=== PATIENT | female | born 1980 | race Caucasian/White ===

== ENCOUNTER → 2022-07-25 10:56 | Outpatient (BNVA) | payer MEDICARE, MEDICAID, SELFPAY | PROVIDERS: PCP Student in an Organized Health Care Education/Training Program; Visit Provider Anesthesiology | DX: M47.816 Spondylosis without myelopathy or radiculopathy, lumbar region (principal); N62 Hypertrophy of breast; E66.01 Morbid (severe) obesity due to excess calories; G89.4 Chronic pain syndrome; Z68.42 Body mass index [BMI] 45.0-49.9, adult | CPT/HCPCS: 99202 ==

== ENCOUNTER 2022-08-21 06:06 | Outpatient (REF) | payer MEDICARE, MEDICAID, SELFPAY ==
--- NOTE | ~2022-08-21 | FL_ITS ---
EXAMINATION: XR FLUOROSCOPY WITH IMAGES CLINICAL INFORMATION: Back pain. COMPARISON: None. TECHNIQUE: Fluoroscopy Supervised By: OFE Olvera. Fluoroscopy Time: 0.8. Cumulative Dose: 21.0 mGy. DAP: 5.74 Gy-cm2. Images: 6. FINDINGS: There are 6 digital images obtained revealing needle positioned adjacent to bilateral L5, L4 and L3 pedicles with contrast opacifying the adjacent soft tissues. Visualized bones are grossly unremarkable. FL/FL guidance in treatment room IMPRESSION: Fluoroscopy guidance was provided to the referrer for pain management.
== END 2022-08-21 06:07 | disposition home or self-care (01) ==
LOC: CF 06:06
PROVIDERS: Visit Provider Anesthesiology
DX: M47.816 Spondylosis without myelopathy or radiculopathy, lumbar region (principal); G89.4 Chronic pain syndrome; E66.01 Morbid (severe) obesity due to excess calories
CPT/HCPCS: 64493; 64494

== ENCOUNTER → 2022-08-27 15:08 | Outpatient (BNVA) | payer MEDICARE, MEDICAID, SELFPAY | PROVIDERS: PCP Student in an Organized Health Care Education/Training Program; Visit Provider Anesthesiology | DX: G89.4 Chronic pain syndrome (principal); M47.816 Spondylosis without myelopathy or radiculopathy, lumbar region; M51.36 Other intervertebral disc degeneration, lumbar region; E66.01 Morbid (severe) obesity due to excess calories | CPT/HCPCS: Q3014 ==

== ENCOUNTER 2022-09-18 10:31 | Outpatient (REF) | payer MEDICARE, MEDICAID, SELFPAY ==
--- NOTE | ~2022-09-18 | MR_ITS ---
EXAMINATION: MR LUMBAR SPINE WITHOUT CONTRAST CLINICAL INFORMATION: Lower back pain COMPARISON: None TECHNIQUE: MRI of the lumbar spine was obtained using routine sequences without contrast. FINDINGS: Motion degraded examination Normal anatomic alignment. No suspicious marrow signal or focal osseous lesion. The vertebral body heights are maintained. Disc desiccation with relative preservation of disc space height from L3-L4 to L5-S1.. The conus medullaris terminates at the level of L1-L2. The distal spinal cord is normal in appearance. The cauda equina nerve roots appear normal. Thin fatty infiltration of the filum terminale. No significant abnormalities of the paraspinal musculature.. Subcutaneous edema in the midline posterior soft tissues Limited evaluation of the intra-abdominal structures without significant abnormalities. The abdominal aorta is of normal contour and caliber. SPINAL LEVELS: T12-L1: No significant spinal canal or neural foraminal narrowing L1-L2: Small left central disc protrusion. No significant spinal canal or neural foraminal narrowing L2-L3: No significant spinal canal or neuroforaminal narrowing. L3-L4: Minimal disc bulge, mild to moderate facet arthropathy. No significant central spinal canal stenosis. Mild bilateral neural foraminal narrowing. L4-L5: Minimal central disc protrusion with annular fissure and. Mild facet arthropathy. Mild bilateral neural foraminal narrowing. L5-S1: Minimal central disc protrusion with annular fissure and. Mild facet arthropathy. Mild bilateral neural foraminal narrowing. MR/MR lumbar spine wo con IMPRESSION: Motion degraded examination 1. Mild degenerative changes of the lumbar spine as described above without significant spinal canal stenosis or high-grade neural foraminal narrowing. 2. Mild to moderate lower lumbar facet arthropathy. 3. Minimal central disc protrusions with annular fissures at L4-L5 and L5-S1.
== END 2022-09-18 10:32 | disposition home or self-care (01) ==
LOC: HO.MRI 10:31
PROVIDERS: PCP Student in an Organized Health Care Education/Training Program; Visit Provider Anesthesiology
DX: M47.816 Spondylosis without myelopathy or radiculopathy, lumbar region (principal); M51.36 Other intervertebral disc degeneration, lumbar region; G89.4 Chronic pain syndrome; E66.01 Morbid (severe) obesity due to excess calories
CPT/HCPCS: 72148

== ENCOUNTER 2023-03-05 11:58 | Outpatient (REF) | payer MEDICARE, MEDICAID, SELFPAY ==
[2023-03-05 15:00] LABS: Alanine Aminotransferase 12 U/L (0-31); Albumin Level 3.9 g/dL (3.5-5.0); Alkaline Phosphatase 60 U/L (39-117); Anion Gap 10 (12-20); Aspartate Amino Transferase 17 U/L (5-31); Bilirubin Direct 0.2 mg/dL (0.0-0.5); Bilirubin Total 0.3 mg/dL (0.0-1.0); Blood Urea Nitrogen 6 mg/dL (9-16); Calcium 9.1 mg/dL (8.4-10.2); Carbon Dioxide 27 mmol/L (22-29); Chloride 105 mmol/L (96-108); Cholesterol 149 mg/dL (<200); Estimated Glomerular Filt Rate > 60; Glucose Fasting 81 mg/dL (60-99); HDL Cholesterol 44 mg/dL (>40); LDL Cholesterol Calculated 91 mg/dL (<100); Potassium 3.6 mmol/L (3.3-5.1); Sodium 138 mmol/L (135-145); Total Protein 7.7 g/dL (6.5-8.0); Triglycerides 73 mg/dL (<150)
[2023-03-05 15:20] LABS: Vitamin D 25-OH Total 16.7 ng/mL (>30)
== END 2023-03-05 11:59 | disposition home or self-care (01) ==
LOC: HO.CHCLDS 11:58
PROVIDERS: Visit Provider Student in an Organized Health Care Education/Training Program
DX: Z13.89 Encounter for screening for other disorder (principal)
CPT/HCPCS: 36415; 80048; 80061; 80076; 82306

== ENCOUNTER 2024-04-17 11:41 | Outpatient (REF) | payer MEDICARE, MEDICAID, SELFPAY ==
[2024-04-17 12:08] LABS: MANUAL DIFF FLAG NO
[2024-04-17 12:20] LABS: Basophils Percent Auto 0.6 % (0-2); Eosinophils Absolute Auto 0.1 X10*3/uL (0.0-0.4); Eosinophils Percent Auto 2.9 % (0-4); Hematocrit 39.3 % (37.0-47.0); Hemoglobin 12.6 g/dl (12.0-16.0); Imm Gran Abs Auto 0.01 X10*3/uL (0.00-0.03); Imm Gran Pct Auto 0.2 % (0.0-0.4); Lymphocytes Absolute Auto 1.1 X10*3/uL (1.2-4.9); Lymphocytes Percent Auto 22.7 % (20-40); Mean Corpuscular HGB Conc 32.1 g/dl (31.0-35.0); Mean Platelet Volume 11.8 fL (9.4-12.3); Monocytes Absolute Auto 0.3 X10*3/uL (0.1-1.2); Monocytes Percent Auto 5.5 % (2-11); Neutrophils Absolute Auto 3.2 x10*3/uL (2.0-8.3); Neutrophils Percent Auto 68.1 % (45-73); Platelet Count 232 X10*3/uL (160-400); Red Blood Count 5.04 X10*6/uL (4.20-5.50); White Blood Count 4.8 X10*3/uL (4.8-10.8)
[2024-04-17 12:57] LABS: Alanine Aminotransferase 16 U/L (0-31); Albumin Level 3.9 g/dL (3.5-5.0); Alkaline Phosphatase 56 U/L (39-117); Anion Gap 10 (12-20); Aspartate Amino Transferase 27 U/L (5-31); Bilirubin Direct 0.2 mg/dL (0.0-0.5); Bilirubin Total 0.4 mg/dL (0.0-1.0); Blood Urea Nitrogen 8 mg/dL (9-16); Calcium 9.2 mg/dL (8.4-10.2); Carbon Dioxide 29 mmol/L (22-29); Chloride 103 mmol/L (96-108); Cholesterol 150 mg/dL (<200); Estimated Glomerular Filt Rate > 60; Glucose Random 85 mg/dL (60-115); HDL Cholesterol 48 mg/dL (>40); LDL Cholesterol Calculated 88 mg/dL (<100); Potassium 3.1 mmol/L (3.3-5.1); Sodium 139 mmol/L (135-145); Total Protein 7.5 g/dL (6.5-8.0); Triglycerides 72 mg/dL (<150)
[2024-04-18 08:16] LABS: HIV AB/AG Nonreactive (Nonreactive); HIV Num 1 0.05 S/CO (0.00-0.99); ~HepC Num1 0.15 S/CO (0.00-0.79); ~Hepatitis C Antibody Nonreactive (Nonreactive)
== END 2024-04-17 11:42 | disposition home or self-care (01) ==
LOC: HO.LAB 11:41
PROVIDERS: PCP Student in an Organized Health Care Education/Training Program; Visit Provider Student in an Organized Health Care Education/Training Program
DX: Z00.00 Encounter for general adult medical examination without abnormal findings (principal); I10 Essential (primary) hypertension; D50.9 Iron deficiency anemia, unspecified; E55.9 Vitamin D deficiency, unspecified
CPT/HCPCS: 36415; 80048; 80061; 80076; 82306; 85025; 86803; 87389

== ENCOUNTER 2024-04-30 11:42 | Outpatient (REF) | payer MEDICARE, MEDICAID, SELFPAY ==
[2024-04-30 15:19] LABS: Anion Gap 14 (12-20); Blood Urea Nitrogen 16 mg/dL (9-16); Calcium 9.7 mg/dL (8.4-10.2); Carbon Dioxide 22 mmol/L (22-29); Chloride 106 mmol/L (96-108); Estimated Glomerular Filt Rate > 60; Glucose Random 78 mg/dL (60-115); Potassium 3.7 mmol/L (3.3-5.1); Sodium 138 mmol/L (135-145)
== END 2024-04-30 11:43 | disposition home or self-care (01) ==
LOC: HO.CHCLDS 11:42
PROVIDERS: Visit Provider Student in an Organized Health Care Education/Training Program
DX: I10 Essential (primary) hypertension (principal)
CPT/HCPCS: 36415; 80048

== ENCOUNTER 2025-04-20 12:01 | Outpatient (REF) | payer MEDICARE, MEDICAID, SELFPAY ==
--- OUTSIDE RECORDS SUMMARY | 2025-04-16 13:00 | XMS_ITS | Encounter Summary ---
Author Organization [employer] [facility] Address [address] 7[address] [place] [address] Care Team Providers Care Hypo Splasher Name Role Phone Scarlet Clay CNP Primary Care Provider [phone] Reason for Referral * Imaging (Routine) - Authorized Specialty Diagnoses / Procedures Referred By Kellee rucker Referred To Contact Radiology Diagnoses Encounter for screening mammogram for breast cancer Procedures BI Mammogram Screening Tomosynthesis Bilateral Scarlet Clay CNP [address] [place] [address] Phone: tel: fax: [facility] Referral ID Status Reason Start Date Expiration Date V isits Requested Visits Authorized [id number] Authorized 04/16/2025 04/16/2026 1 1 Encounter Details Date Type Department Care Team ([facility] st Contact Info) Description 04/16/2025 1:00 PM EDT Office Visit [facility] [address] [place] [address] Scarlet Clay CNP [address] [place] [address] Encounter for physical examination (Primary Dx); Encounter for screening mammogram for breast cancer; Other chronic back pain; Chronic pain syndrome Social History Tobacco Use Types Packs/Day Years Used Date Smoking Tobacco: Never Smokeless Tobacco: Never Alcohol Use Standard Drinks/Week Comments Never 0 (1 standard drink = 0.6 oz pur e alcohol) Alcohol Answer Date Recorded How often do you have a drink containing alcohol ? 1 04/16/2025 How many drinks containing a lcohol do you have on a typical day when you are drinking? 0 04/16/2025 How often do you have six or more drinks on one occasion? 0 04/16/2025 Depression Answer Date Recorded Patient Health Questionnaire-9 Score 7 04/16/2025 Patient Health Questionnaire-9 Score 7 04/16/2025 Last PHQ-9: Questionnaire Data Not on file 1 Housing Stability Answer Date Recorded What is your housing situation today? I have rosa smiley 03/31/[address] you li ve. Do you have problems with any of the following? None of the above 03/31/2024 Food Insecurity Answer Date Recorded Within the past 12 months, y ou worried that your food would run out before you got money to buy more: Sometimes True 2023 Within the past 12 months,th e food you bought just didn't last and you didn't have enough money to get more: Sometimes True 04/09/2024 Transportation Answer Date Recorded In the past 12 months, has l ack of transportation kept you from medical appts, meetings, work or from getting things needed for daily living? No 04/09/2025 Utilities Answer Date Recorded In the past 12 months, has t he electric, gas, oil or water company threatened to shut off services in your home? Yes 04/09/2025 Depression Answer Date Recorded Patient Health Questionnaire-2 Score 2 04/16/2025 Internet Access Answer Date Recorded Internet Access Q1 Yes 03/31/2024 Internet Access Q2 Not on file 03/31/2024 Comments No Sex and Gender Information Value Date Recorded Sex Assigned at Female 04/23/2022 10:16 AM EDT Legal Sex Female 10:16 AM EDT Gender Identity Female 04/23/2022 10:16 AM EDT Sexual Orientation Straight 04/23/2022 10 :16 AM EDT documented as of this encounter Last Filed Vital Signs Vital Sign Reading Time Taken Comments Blood Pressure 172/100 04/16/2025 12:50 PM EDT Pulse 80 04/16/2025 12:50 PM EDT Temperature 36.2 C (97.1 F) 04/16/2025 12:50 PM EDT Respiratory Rate 18 04/16/2025 12:50 PM EDT Oxygen Saturation 98% 04/16/2025 12:50 PM EDT Inhaled Oxygen Concentration - - Weight 111 kg (245 lb) 04/16/2025 12:50 PM EDT Height 153.7 cm (5' 0.5 ) 04/16/2025 12:50 PM ED T Body Mass Index 47.06 04/16/2025 12:50 PM EDT documented in this encounter Functional Status * Over the past 2 weeks, how often have you been bothered by any of the following problems? Question Answer Date of Assessment Author Patient Health Questionnaire -2 Score 2 04/16/2025 12:54 PM EDT Sa ariane Mcelroy MA * Little interest or pleasure in doing things Answer Date of Assessment Author Several days 04/16/2025 12:54 PM EDT Radha Holguin MA * Feeling down, depressed, or hopeless Answer Date of Assessment Author Several days 04/16/2025 12:54 PM EDT Radha Holguin MA * Trouble falling or staying asleep, or sleeping too much Answer Date of Assessment Author Several days 04/16/2025 12:54 PM EDT Radha Holguin MA * Feeling tired or having little energy Answer Date of Assessment Author Several days 04/16/2025 12:54 PM EDT Radha Holguin MA * Poor appetite or overeating Answer Date of Assessment Author Not at all 04/16/2025 12:54 PM EDT Radha Holguin MA * Feeling bad about yourself - or that you are a failure or have let yourself or your family down Answer Date of Assessment Author Not at all 04/16/2025 12:54 PM EDT Radha Holguin MA * Trouble concentrating on things, such as reading the newspaper or watching television Answer Date of Assessment Author Several days 04/16/2025 12:54 PM EDT Radha Holguin MA * Moving or speaking so slowly that other people could have noticed? Or the opposite - being so fidgety or restless that you have been moving around a lot more than usual. Answer Date of Assessment Author More than half the days 04/16/2025 12:54 PM EDT Radha Mcelroy MA * Thoughts that you would be better off or hurting yourself in some way Answer Date of Assessment Author Not at all 04/16/2025 12:54 PM EDT Radha Holguin MA * Patient Health Questionnaire-9 Score Answer Date of Assessment Author 7 04/16/2025 12:54 PM EDT Radha Holguin MA * How difficult have these problems made it for you to do your work, take care of things at home, or get along with other people? Answer Date of Assessment Author Somewhat difficult 04/16/2025 12:54 PM EDT Radha Adamson MA * Over the last 2 weeks, how often have you been bothered by any of the following problems? Question Answer Date of Assessment Author Feeling nervous, anxious, or on edge 1 04/16/2025 12:54 PM EDT Sa ariane Mcelroy MA Not being able to stop or control worrying 1 04/16/2025 12:54 PM EDT Sa ariane Mcelroy MA Worrying too much about different things 1 04/16/2025 12:54 PM EDT Sa ariane Mcelroy MA Trouble relaxing 3 04/16/2025 12:54 PM EDT Radha Mcelroy MA Being so restless that it is hard to sit still 3 04/16/2025 12:54 PM EDT Sa ariane Mcelroy MA Becoming easily annoyed or irritable 2 04/16/2025 12:54 PM EDT Sa ariane Mcelroy MA Feeling afraid as if somethi ng awful might happen 1 04/16/2025 12:54 PM EDT Sa ariane Mcelroy MA CHELSY-7 Total Score 12 04/16/2025 12:54 PM EDT Radha Mcelroy MA documented as of this encounter Plan of Treatment Scheduled Orders Name Type Priority Associated Diagnoses Orde r Schedule BI Mammogram Screening Tomosynthesis Bilateral Imaging Routine Encounter for screening mammogram for breast cancer Expected: 04/16/2025, Expires: 06/16/2026 XR Lumbar Spine 2-3 Views Imaging Routine Other chronic back pain Expected: 04/16/2025, Expires: 04/16/2026 XR Thoracic Spine 3 Views Imaging Routine Other chronic back pain Expected: 04/16/2025, Expires: 04/16/2026 ELIA Screen,IFA, with Reflex to Titer and Pattern Lab Routine Chronic pain syndrome Expected: 04/16/2025 (Approximate), Expires: 04/16/2026 Sed Rate by Modified [facility] Lab Routine Chronic pain syndrome Expected: 04/16/2025, Expires: 04/16/2026 documented as of this encounter Procedures Procedure Name Priority Date/Time Associated Diagnosis Comments TSH W/REFLEX TO FT4 Routine 04/20/2025 1 2:03 PM EDT Encounter for physical examination CBC WITH AUTO DIFFERENTIAL Routine 04/20/2025 12:03 PM EDT Encounter for physical examination RHEUMATOID FACTOR Routine 04/20/2025 12: 03 PM EDT Chronic pain syndrome C-REACTIVE PROTEIN Routine 04/20/2025 12 :03 PM EDT Chronic pain syndrome HEPATIC FUNCTION PANEL Routine 04/20/2025 12:03 PM EDT Encounter for physical examination LIPID PANEL, STANDARD Routine 04/20/2025 12:03 PM EDT Encounter for physical examination BASIC METABOLIC PANEL Routine 04/20/2025 12:03 PM EDT Encounter for physical examination documented in this encounter Results * TSH W/Reflex to FT4 (04/20/2025 12:03 PM EDT) TSH reflex Free T4 0.55 0.32 - 4.0 uIU/mL [facility] Blood Venous blood specimen / Unknown 04/20/2025 12:03 PM EDT 04/20/2025 2:09 PM EDT Scarlet Clay [facility] BLOOD ORDERABLES Valentine l Result [facility] [address] [place] [phone] * (ABNORMAL) Rheumatoid Factor (04/20/2025 12:03 PM EDT) Pathologist [facility] Rheumatoid Factor 15.8(H) <15.0 IU/mL [facility] Blood Venous blood specimen / Unknown 04/20/2025 12:03 PM EDT 04/20/2025 2:09 PM EDT [facility] BLOOD ORDERABLES Valentine l Result Performing Organization Address [facility] Co de Phone Number [facility] [address] [place] [phone] * (ABNORMAL) C-reactive Protein (04/20/2025 12:03 PM EDT) [facility] C Reactive Protein 2.39(H) < or = 0.50 mg/dL [facility] Blood Venous blood specimen / Unknown 04/20/2025 12:03 PM EDT 04/20/2025 2:09 PM EDT [facility] LAB BLOOD ORDERABLES Valentine l Result Performing Organization Address [facility] de Phone Number [facility] [address] [place] [phone] * (ABNORMAL) CBC auto differential (04/20/2025 12:03 PM EDT) Pathologist [facility] White Blood Count 5.0 4.8 - 10.8 X10*3/uL [facility] Red Blood Count 4.93 4.20 - 5.50 X10*6/uL [facility] Hemoglobin 12.2 12.0 - 16.0 g/dl [facility] Hematocrit 39.4 37.0 - 47.0 % [facility] Mean Corpuscular Volume 79.9(L) 80.0 - 98.0 fL [facility] Mean Corpuscular Hemoglobin 24.7(L) 27.0 - 33.0 pg [facility] Mean Corpuscular HGB Conc 31.0 31.0 - 35.0 g/dl [facility] Red Cell Distribution Width 15.0 11.0 - 16.0 % [facility] Platelet Count 211 160 - 400 X10*3/uL [facility] Mean Platelet Volume 12.7(H) 9.4 - 12.3 fL [facility] Neutrophils Percent Auto 66.3 45 - 73 % [facility] Imm Gran Pct Auto 0.2 0.0 - 0.4 % [facility] Lymphocytes Percent Auto 23.7 20 - 40 % [facility] Monocytes Percent Auto 6.6 2 - 11 % [facility] Eosinophils Percent Auto 2.4 0 - 4 % [facility] Basophils Percent Auto 0.8 0 - 2 % [facility] NRBC Pct Auto 0.0 0.0 - 0.2 /100WBC [facility] Neutrophils Absolute Auto 3.3 2.0 - 8.3 x10*3/uL [facility] Imm Gran Abs Auto 0.01 0.00 - 0.03 X10*3/uL [facility] Lymphocytes Absolute Auto 1.2 1.2 - 4.9 X10*3/uL [facility] Monocytes Absolute Auto 0.3 0.1 - 1.2 X10*3/uL [facility] Eosinophils Absolute Auto 0.1 0.0 - 0.4 X10*3/uL [facility] Basophils Absolute Auto 0.0 0.0 - 0.2 X10*3/uL [facility] NRBC Abs Auto 0.000 0.0 - 0.012 X10*3/uL [facility] Blood Venous blood specimen / Unknown 04/20/2025 12:03 PM EDT 04/20/2025 2:21 PM EDT Scarlet Clay [facility] BLOOD ORDERABLES Valentine l Result [facility] [address] [place] [phone] * Hepatic Function Panel (04/20/2025 12:03 PM EDT) Bilirubin, Total 0.4 0.0 - 1.0 mg/dL [facility] Bilirubin, Direct 0.1 0.0 - 0.5 mg/dL [facility] Aspartate Amino Transferase 25 5 - 31 U/L [facility] Alanine Aminotransferase 15 0 - 31 U/L [facility] Total Protein 7.6 6.5 - 8.0 g/dL [facility] Albumin Level 4.1 3.5 - 5.0 g/dL [facility] Alkaline Phosphatase 56 39 - 117 U/L [facility] Blood Venous blood specimen / Unknown 04/20/2025 12:03 PM EDT 04/20/2025 2:09 PM EDT Neftalixinahid Clay [facility] BLOOD ORDERABLES Valentine l Result [facility] [address] [place] [phone] * Lipid Panel, Standard (04/20/2025 12:03 PM EDT) Triglycerides 67 <150 mg/dL [facility] Comment:Desirable Triglyceri de: less than 150 mg/dLBorderline High Triglyceride 150-199 mg/dLHigh Triglyceride: 200-499 mg/dLVery High Triglyceride: greater than or equal to 5OO mg/dL Cholesterol 149 <200 mg/dL [facility] Comment:Desirable Cholestero l: less than 200 mg/dLBorderline High Cholesterol: 200-239 mg/dLHigh Cholesterol: greater than 239 mg/dL LDL Cholesterol Calculated 89 <100 mg/dL [facility] Comment:Desirable LDL: less than 100 mg/dLNear Optimal/Above Optimal LDL: 110- 129 mg/dLBorderline High LDL: 130-159 mg/dLHigh LDL: 160-189 mg/dLVery High LDL: greater than or equal to 190 mg/dL HDL Cholesterol 47 >40 mg/dL [facility] Comment:Desirable HDL: great er than 40 mg/dL Note: This HDL assay may give artificially low results in patients with liver disease. Blood Venous blood specimen / Unknown 04/20/2025 12:03 PM EDT 04/20/2025 2:09 PM EDT [facility] BLOOD ORDERABLES Valentine l Result Performing Organization Address [facility] Co de Phone Number [facility] [address] [place] [phone] * (ABNORMAL) Basic Metabolic Panel (04/20/2025 12:03 PM EDT) Sodium 140 135 - 145 mmol/L [facility] Potassium 3.5 3.3 - 5.1 mmol/L [facility] Chloride 106 96 - 108 mmol/L [facility] Carbon Dioxide 26 22 - 29 mmol/L [facility] Anion Gap 12 12 - 20 [facility] Urea Nitrogen (BUN) 8(L) 9 - 16 mg/dL [facility] Creatinine, Serum 0.65 0.5 - 1.4 mg/dL [facility] Estimated Glomerular Filt Rate >60 [facility] Comment:Chronic Kidney Disea se: Estimated GFR < 60 mL/min/[id number] Kidney Disease: Estimated GFR < 15 mL/min/1.73m2 Glucose 73 60 - 115 mg/dL [facility] Calcium 8.8 8.4 - 10.2 mg/dL [facility] Blood Venous blood specimen / Unknown 04/20/2025 12:03 PM EDT 04/20/2025 2:09 PM EDT [facility] BLOOD ORDERABLES Valentine l Result Performing Organization Address [facility] Co de Phone Number [facility] [address] [place] [phone] documented in this encounter Visit Diagnoses Diagnosis Encounter for physical examination- Primary Encounter for screening mammogram for breast cancer Other chronic back pain Chronic pain syndrome documented in this encounter Additional Health Concerns Assessment Noted Time PHQ-9 Depression Total Score: 7 04/16/20 12:54 PM EDT documented as of this encounter Care Teams Hypo Splasher Relationship Specialty Start Date End Date Scarlet Clay CNP [address] [place] [place] [address] PCP - General Family Medicine 04/12/25 documented as of this encounter
[2025-04-20 14:30] LABS: MANUAL DIFF FLAG NO
[2025-04-20 14:37] LABS: Hematocrit 39.4 % (37.0-47.0); Hemoglobin 12.2 g/dl (12.0-16.0); Imm Gran Abs Auto 0.01 X10*3/uL (0.00-0.03); Imm Gran Pct Auto 0.2 % (0.0-0.4); Lymphocytes Absolute Auto 1.2 X10*3/uL (1.2-4.9); Mean Corpuscular HGB Conc 31.0 g/dl (31.0-35.0); Mean Corpuscular Hemoglobin 24.7 pg (27.0-33.0); Mean Corpuscular Volume 79.9 fL (80.0-98.0); NRBC Abs Auto 0.000 X10*3/uL (0.0-0.012); NRBC Pct Auto 0.0 /100WBC (0.0-0.2); Platelet Count 211 X10*3/uL (160-400); Red Blood Count 4.93 X10*6/uL (4.20-5.50); White Blood Count 5.0 X10*3/uL (4.8-10.8)
[2025-04-20 14:38] LABS: Alanine Aminotransferase 15 U/L (0-31); Albumin Level 4.1 g/dL (3.5-5.0); Alkaline Phosphatase 56 U/L (39-117); Anion Gap 12 (12-20); Aspartate Amino Transferase 25 U/L (5-31); Blood Urea Nitrogen 8 mg/dL (9-16); Calcium 8.8 mg/dL (8.4-10.2); Carbon Dioxide 26 mmol/L (22-29); Chloride 106 mmol/L (96-108); Cholesterol 149 mg/dL (<200); Estimated Glomerular Filt Rate > 60; HDL Cholesterol 47 mg/dL (>40); Potassium 3.5 mmol/L (3.3-5.1); Sodium 140 mmol/L (135-145); Total Protein 7.6 g/dL (6.5-8.0); Triglycerides 67 mg/dL (<150)
--- OUTSIDE RECORDS SUMMARY | 2025-04-20 15:22 | XMS_ITS | Encounter Summary ---
Author Organization [employer] Address [address] 7[address] [place] [address] Care Team Providers Care Tin Can Laborer Name Role Phone Lesly Zaman MD Primary Care Provider [phone] Scarlet Clay CNP Primary Care Provider [phone] Reason for Visit * Reason Onset Date Comments Referral 07/30/2024 Encounter Details Date Type Department Care Team ([facility] st Contact Info) Description 07/30/2024 Telephone [facility] [address] [place] [address] Lesly Zaman MD [address] [place] [address] Referral Social History Tobacco Use Types Packs/Day Years Used Date Smoking Tobacco: Never Smokeless Tobacco: Never Alcohol Use Standard Drinks/Week Comments Never 0 (1 standard drink = 0.6 oz pur e alcohol) Depression Answer Date Recorded Patient Health Questionnaire-9 Score 6 04/09/2024 Patient Health Questionnaire-9 Score 6 04/09/2024 Last PHQ-9: Questionnaire Data Not on file [...] from getting things needed for daily living? I am not sure 04/09/2024 Utilities Answer Date Recorded In the past 12 months, has t he electric, gas, oil or water company threatened to shut off services in your home? I am not sure 04/09/2024 Depression Answer Date Recorded Patient Health Questionnaire-2 Score 2 04/09/2024 Internet Access Answer Date Recorded Internet Access Q1 Yes 03/31/2024 Internet Access Q2 Not on file 03/31/2024 Comments Unknown Sex and Gender Information Value Date Recorded Sex Assigned at Female 04/23/2022 10:16 AM EDT Legal Sex Female 10:16 AM EDT Gender Identity Female 04/23/2022 10:16 AM EDT Sexual Orientation Straight 04/23/2022 10 :16 AM EDT documented as of this encounter Miscellaneous Notes * Telephone Encounter - Alexx Bobyes - 07/30/2024 10:32 AM EST Tc from pt requesting a referral to [facility]. Pt states theyhave an appt schedule for September and that they need a referral. documented in this encounter Plan of Treatment Not on file documented as of this encounter Visit Diagnoses Not on filedocumented in this encounter Additional Health Concerns Assessment Noted Time PHQ-9 Depression Total Score: 6 04/09/20 24 2:33 PM EDT documented as of this encounter Care Teams Tin Can Laborer Relationship Specialty Start Date End Date Lesly Zaman MD [address] [place] [address] PCP - General Family Medicine 12/14/19 04/11/25 Scarlet Clay CNP [address] [place] [address] PCP - General Family Medicine 04/12/25 documented as of this encounter
--- OUTSIDE RECORDS SUMMARY | 2025-04-20 15:22 | XMS_ITS | Encounter Summary ---
Author Organization [employer] Address [address] [facility] 7[address] [place] [address] Care Team Providers Care Head Machinist Name Role Phone Lesly Zaman MD Primary Care Provider [phone] Scarlet Clay CNP Primary Care Provider [phone] Reason for Visit * Reason Onset Date Comments Med Refill 06/11/2023 Encounter Details Date Type Department Care Team ([facility] [place] st Contact Info) Description 06/11/2023 Telephone [facility] [address] [place] [address] Lesly Zaman MD [address] [place] [address] Med Refill Social History Tobacco Use Types Packs/Day Years Used Date Smoking Tobacco: Never Smokeless Tobacco: Never Alcohol Use Standard Drinks/Week Comments Never 0 (1 standard drink = 0.6 oz pur e alcohol) Depression Answer Date Recorded Patient Health Questionnaire-9 Score 2 11/16/2022 Housing Stability Answer Date Recorded What is your housing situation today? I have rosa smiley 04/29/[address] you li ve. Do you have problems with any of the following? I am not sure 04/29/2023 Food Insecurity Answer Date Recorded Within the past 12 months, y ou worried that your food would run out before you got money to buy more: Often true 04/29/2023 Within the past 12 months,th e food you bought just didn't last and you didn't have enough money to get more: Often true 11/2022 Transportation Answer Date Recorded In the past 12 months, has l ack of transportation kept you from medical appts, meetings, work or from getting things needed for daily living? Yes, it has kept me from medical appointments or getting medications.;Yes, it has kept me from non-medical meetings, work, or getting things that I need 04/02/2023 Utilities Answer Date Recorded In the past 12 months, has t he electric, gas, oil or water company threatened to shut off services in your home? Yes 04/02/2023 Depression Answer Date Recorded Patient Health Questionnaire-2 Score 2 11/16/2022 Comments Unknown Sex and Gender Information Value Date Recorded Sex Assigned at Female 04/23/2022 10:16 AM EDT Legal Sex Female 10:16 AM EDT Gender Identity Female 04/23/2022 10:16 AM EDT Sexual Orientation Straight 04/23/2022 10 :16 AM EDT documented as of this encounter Miscellaneous Notes * Telephone Encounter - Dara Bell - 06/11/2023 11:04 AM EST Tc from pt requesting med refill on; traMADol (Ultram) 50 MG tablet documented in this encounter Plan of Treatment Not on file documented as of this encounter Visit Diagnoses Not on filedocumented in this encounter Additional Health Concerns Assessment Noted Time PHQ-9 Depression Total Score: 2 11/17/19 23 11:19 AM EDT documented as of this encounter Care Teams Head Machinist Relationship Specialty Start Date End Date Lesly Zaman MD [address] [place] [address] PCP - General Family Medicine 12/14/19 04/11/25 Scarlet Clay CNP [address] [place] [address] PCP - General Family Medicine 04/12/25 documented as of this encounter
--- OUTSIDE RECORDS SUMMARY | 2025-04-20 15:22 | XMS_ITS | Encounter Summary ---
Author Organization [employer] Address [address] [facility] 7[address] [place] [address] Care Team Providers Care Warhead Maintenance Specialist Name Role Phone Lesly Zaman MD Primary Care Provider [phone] Scarlet Clay CNP Primary Care Provider [phone] Reason for Referral * Imaging (Routine) - Closed Specialty Diagnoses / Procedures Referred By Kellee rucker Referred To Contact Radiology Diagnoses Encounter for screening mammogram for breast cancer Procedures BI Mammogram Screening Tomosynthesis Bilateral Lesly Zaman MD [address] [place] [address] Phone: tel: fax: [facility] Referral ID Status Reason Start Date Expiration Date Visits Re quested Visits Authorized [id number] Closed 2024 2025 1 1 Encounter Details Date Type Department Care Team (Late st Contact Info) Description 2024 Orders Only [facility] MED & PEDS [address] [place] [address] Lesly Zaman MD [address] [place] [address] Encounter for screening mammogram for breast cancer (Primary Dx) Social History Tobacco Use Types Packs/Day Years [...] AM EDT documented as of this encounter Plan of Treatment Scheduled Orders Name Type Priority Associated Diagnoses Orde r Schedule BI Mammogram Screening Tomosynthesis Bilateral Imaging Routine Encounter for screening mammogram for breast cancer Expected: 2024, Expires: 07/06/2025 documented as of this encounter Visit Diagnoses Diagnosis Encounter for screening mammogram for breast cancer- Primary documented in this encounter Additional Health Concerns Assessment Noted Time PHQ-9 Depression Total Score: 6 04/09/20 24 2:33 PM EDT documented as of this encounter Care Teams Warhead Maintenance Specialist Relationship Specialty Start Date End Date Lesly Zaman MD [address] [place] [id number] PCP - General Family Medicine 12/14/19 04/11/25 Scarlet Clay CNP [address] [place] [id number] PCP - General Family Medicine 04/12/25 documented as of this encounter
--- OUTSIDE RECORDS SUMMARY | 2025-04-20 15:22 | XMS_ITS | Encounter Summary ---
Author Organization [employer] Address [address] [facility] [address]t [place] [address] Care Team Providers Care Director Of Occupational Therapy Name Role Phone Lesly Zaman MD Primary Care Provider [phone] Scarlet Clay CNP Primary Care Provider [phone] Reason for Visit * Reason Onset Date Comments PT1 02/10/2024 Encounter Details Date Type Department Care Team ([facility] st Contact Info) Description 02/10/2024 Telephone [facility] MED & PEDS [address] [place], [place] [phone] Lesly Zaman MD [address] [place] [address] PT1 Social History Tobacco Use Types Packs/Day Years [...] encounter Miscellaneous Notes * Telephone Encounter - Mery Smith - 02/10/2024 10:55 AM EDT 1.)Patient calling requesting PT1 Home Address verified: Y/N: Yes Provider name or facility name: [facility] Facility Address: [address] [facility] Escort needed: Y/N: No Do you have a wheelchair: Y/N: No If yes- Manual or electric: Visits: 4-5 times a month 2.)Home Address verified: Y/N: Yes Provider name or facility name: [facility] Facility Address: [address] [place] [address] Escort needed: Y/N: No Do you have a wheelchair: Y/N: No If yes- Manual or electric: Visits: 2-3 times a month 3.)Home Address verified: Y/N: Yes Provider name or facility name: [facility] Facility Address: [address] [place] [address] Escort needed: Y/N: No Do you have a wheelchair: Y/N: No If yes- Manual or electric: Visits:1-2 times a month 4.)Home Address verified: Y/N: Yes Provider name or facility name: [facility] Facility Address: [address], [place] [address] Escort needed: Y/N: No Do you have a wheelchair: Y/N: No If yes- Manual or electric: Visits: 2-3 times a month 5.)Home Address verified: Y/N: Yes Provider name or facility name: [facility] Facility Address: [address], [place] [address] Escort needed: Y/N: No Do you have a wheelchair: Y/N: No If yes- Manual or electric: Visits: 2-3 times a month 6.)Home Address verified: Y/N: Yes Provider name or facility name: [facility] [employer] [facility] Facility Address: [address] [facility] [address] [place] [address] Escort needed: Y/N: No Do you have a wheelchair: Y/N: No If yes- Manual or electric: Visits: 1-2 times a month documented in this encounter Plan of Treatment Not on file documented as of this encounter Visit Diagnoses Not on filedocumented in this encounter Additional Health Concerns Assessment Noted Time PHQ-9 Depression Total Score: 2 11/17/19 23 11:19 AM EDT documented as of this encounter Care Teams Director Of Occupational Therapy Relationship Specialty Start Date End Date Lesly Zaman MD [address] [place] [id number] PCP - General Family Medicine 12/14/19 04/11/25 Scarlet Clay CNP [address] [place] [id number] PCP - General Family Medicine 04/12/25 documented as of this encounter
--- OUTSIDE RECORDS SUMMARY | 2025-04-20 15:22 | XMS_ITS | Encounter Summary ---
Author Organization [employer] Address [address] [facility] [address] [place] [address] Care Team Providers Care Spooling Operator Name Role Phone Lesly Zaman MD Primary Care Provider [phone] Scarlet Clay CNP Primary Care Provider [phone] Encounter Details Date Type Department Care Team (Late st Contact Info) Description 09/24/2024 Orders Only [facility] CHC MED & PEDS [address] [place], [place] [id number] Araceli Meyer Social History Tobacco Use Types Packs/Day Years [...] as of this encounter Plan of Treatment Not on file documented as of this encounter Procedures Procedure Name Priority Date/Time Associated Diagnosis Comments HM PAP/HPV Routine 05/05/2020 12:00 AM EST documented in this encounter Results * HM PAP/HPV (05/05/2020 12:00 AM EST) us Historical Provider HEALTH MAINTENANCE Final Result Performing Organization Address City/State/[facility] de Phone Number [facility] [address] [place] [address] documented in this encounter Visit Diagnoses Not on filedocumented in this encounter Additional Health Concerns Assessment Noted Time PHQ-9 Depression Total Score: 6 04/09/20 24 2:33 PM EDT documented as of this encounter Care Teams Spooling Operator Relationship Specialty Start Date End Date Lesly Zaman MD [address] [place] [address] PCP - General Family Medicine 12/14/19 04/11/25 Scarlet Clay CNP [address] [place] [address] PCP - General Family Medicine 04/12/25 documented as of this encounter
--- OUTSIDE RECORDS SUMMARY | 2025-04-20 15:22 | XMS_ITS | Encounter Summary ---
Author Organization [employer] Address [address] [facility] 7[address] [place] [address] Care Team Providers Care Implementation Director Name Role Phone Scarlet Clay [employer]ED [employer] BOARD PREASSEMBLER Primary Care Provider [phone] Encounter Details Date Type Department Care Team (Latest Contact Info) Description 04/16/2025 Travel Social History Tobacco Use Types Packs/Day Years [...] AM EDT documented as of this encounter Functional Status * Over the [...] Assessment Author 7 04/16/2025 12:54 PM EDT aRdha Holguin [place] * How difficult have these [...] or control worrying 1 04/16/2025 12:54 PM ZENAIDAT Sa ariane Mcelroy [place] Worrying too much about different things 1 04/16/2025 12:54 PM EDT Sa ariane Mcelroy [place] Trouble relaxing 3 04/16/2025 12:54 PM EDT Radha Mcelroy [place] Being so restless that it is hard to sit still 3 04/16/2025 12:54 PM ZENAIDAT Sa ariane Mcelroy [place] Becoming easily annoyed or irritable 2 04/16/2025 12:54 PM EDT Sa ariane Mcelroy [place] Feeling afraid as if somethi ng awful might happen 1 04/16/2025 12:54 PM ZENAIDAT Sa ariane Mcelroy [place] CHELSY-7 Total Score 12 04/16/2025 12:54 PM EDT Radha Mcelroy [place] documented as of this encounter Plan of Treatment Not on file documented as of this encounter Visit Diagnoses Not on filedocumented in this encounter Additional Health Concerns Assessment Noted Time PHQ-9 Depression Total Score: 7 04/16/20 12:54 PM EDT documented as of this encounter Care Teams Implementation Director Relationship Specialty Start Date End Date Scarlet Clay CNP [address] [place] [address] PCP - General Family Medicine 04/12/25 documented as of this encounter
--- OUTSIDE RECORDS SUMMARY | 2025-04-20 15:22 | XMS_ITS | Clinical Summary ---
Author Organization [employer] Address [address] [place] [address] [address] [place] [address] Care Team Providers Care Risk Tech Name Role Phone Scarlet Clay [employer] MECH[employer]IC Primary Care Provider [phone] Allergies Active Allergy Reactions Criticality Noted Date Comments Fish Allergy Anaphylaxis High 06/29/2022 Medications acetaminophen (Tylenol) 325 MG tablet TAKE 2 TABLETS BY MOUTH EVERY 6 HOURS 06/12/20 22 Active triamcinolone (Kenalog) 0.1 % ointment 06/26/19 23 Active EPINEPHrine (Epipen) 0.3 MG/0.3ML injection syringe INJECT 0.3MG ( 1 PEN ) DIRECTED ONCE INTO MUSCLE NEEDED FOR ANAPHYLAXIS 0.3 mL 3 03/13/20 24 Active hydroCHLOROthi azide (HYDRODiuril) 25 MG tablet Take 1 tablet (25 mg) by mouth Once per day. 30 tablet 11 04/09/20 24 Active albuterol (2.5 MG/3ML) 0.083% nebulizer solutionIndica tions:Uncompli cated asthma, unspecified asthma severity, unspecified whether persistent Take 3 mL (2.5 mg) by nebulization every 6 (six) hours if needed for wheezing. 75 mL 1 04/09/20 24 Active Diclofenac Sodium (Voltaren) 1 % gel Use topical BID 100 g 3 04/09/20 24 Active lisinopril 10 MG tablet Take 1 tablet (10 mg) by mouth Once per day. 30 tablet 11 04/09/20 24 Active fexofenadine (Alina) 180 MG tablet TAKE 1 TABLET (180 MG) BY MOUTH ONCE PER DAY. 90 tablet 10/22/19 25 Active fluticasone furoate (Arnuity Ellipta) 100 MCG/ACT inhaler Inhale 1 puff Once daily. 30 each 5 10/22/19 Active albuterol 108 (90 Base) MCG/ACT inhaler INHALE 2 PUFFS BY MOUTH 4 TO 6 TIMES A DAY 18 g 04/07/20 Active Ketotifen Fumarate 0.035 % solution INSTILL 1 DROP INTO BOTH EYES TWICE DAILY NEEDED 01/09/20 Active metroNIDAZOLE (Metrocream) 0.75 % cream APPLY TO FACE TWICE A DAY 01/15/20 Active ferrous gluconate (Fergon) 324 (38 Fe) MG tabletIndicati ons:Encounter for physical examination Take 1 tablet (324 mg) by mouth with breakfast. 30 tablet 11 04/16/20 25 2025 Active traMADol (Ultram) 50 MG tabletIndicati ons:Chronic pain syndrome Take 1 tablet (50 mg) by mouth every 6 (six) hours if needed for severe pain for up to 5 days. 15 tablet 04/16/20 25 2024 Active DULoxetine (Cymbalta) [address] capsuleIndicat ions:Chronic pain syndrome Take 1 capsule (30 mg) by mouth 2 times daily. Do not crush or chew. 60 capsule 11 04/16/20 25 2025 Active ibuprofen 800 MG tablet Take 1 tablet (800 mg) by mouth 3 times daily. 90 tablet 11 04/09/20 24 2024 albuterol (Ventolin HFA) 108 (90 Base) MCG/ACT inhaler TAKE 2 PUFFS BY MOUTH 4-6 TIMES PER DAY 18 g 03/08/20 25 2024 Discontinued albuterol (Ventolin HFA) 108 (90 Base) MCG/ACT inhaler TAKE 2 PUFFS BY MOUTH 4-6 TIMES PER DAY 18 g 04/07/20 25 2024 Discontinued acetaminophen (Tylenol) 325 MG tablet Take 650 mg by mouth. 06/12/20 22 2024 Discontinued(M ed list cleanup (will not trigger notification to Pharmacy)) valsartan-hydr oCHLOROthiazid e (Diovan-HCT) 160-12.5 MG tablet Take 1 tablet by mouth. 07/19/19 23 2024 Discontinued(M ed list cleanup (will not trigger notification to Pharmacy)) Active Problems Patient Care Coordination No te Formatting of this note migh t be different from the original. C3/CM Danyell House RN Problem Noted Date Diagnosed Date Severe obesity (BMI >= 40) (CMS/HCC) 04/09/2025 Migraine headache 04/09/2025 Depressive disorder 04/09/2025 Uses intrauterine device for control 04/09 HTN (hypertension) 04/09/2025 Health maintenance alteration 04/09/2025 Severe obesity (CMS/HCC) 04/09/2025 Closed fracture of left ankle with routine heali ng 12/07/2022 Assessment & Plan (12/07/2022 2:34 PM EDT): Patient found with left ankle fracture, went to er, was sent to ortho and was given a boot, patient is requesting a walker will send dme REQUEST Chronic bilateral low back pain with bilateral s ciatica 11/16/2022 Assessment & Plan (11/16/2022 12:02 PM EDT): Chronic over 10 years, she has tried pt, chiropractor, pain managent. Patient had recently a MRI done on September, will request results. Told to avoid heavy lifting, rest, continue applying cold pads, will provide lidocaine patches, continue with tylenol/Nsaid as needed. Obesity 06/29/2022 Depression 06/29/2022 Migraines 06/29/2022 Seasonal allergic rhinitis 08/18/2018 Encounters Date Type Department Care Team Description 04/20/2025 Telephone [facility] [address] [place] [address] Erika La RN 04/16/2025 1:00 PM EDT Office Visit [facility] [address] [place] [address] Scarlet Clay CNP Encounter for physical examination (Primary Dx); Encounter for screening mammogram for breast cancer; Other chronic back pain; Chronic pain syndrome 04/16/2025 Travel 04/15/2025 Travel 04/09/2025 Telephone [facility] [address] [place] [address] Lesly Zaman MD chart prep 04/09/2025 Patient Outreach [facility] [address] [place] [address] Lesly Zmaan MD Care Coordination (CHW outreach for SDOH housing search-referral completed ) 04/09/2025 Patient Outreach [facility] [address] [facility] [place] [address] Lesly Zaman MD Pre-visit Planning (SDOH screening positive and Tobacco screening negative) 04/07/2025 Refill [facility] [address] [place] [address] Lesly Zaman MD 04/06/2025 Refill [facility] [address] [place] [address] Lesly Zaman MD 03/22/2025 Telephone [facility] [address] [place] [address] Lesly Zaman MD Medication Question 03/06/2025 Refill [facility] [address] [place] [address] Lesly Zaman MD 02/02/2025 Refill [facility] [address] [place] [address] Lesly Zaman MD from Last 3 Months Immunizations Immunization Administration Dates Next Due Hep B, adult 08/18/2018,04/16/2017,03/04/2017 Influenza, seasonal, injecta ble, preservative free 03/09/2016 Pfizer Covid-19 Vaccine 12+ 07/24/2021 Pfizer Covid-19 Vaccine 12+ kelton-sucrose (Haas Cap) 07/24/2021 TD (adult), 2 Lf tetanus tox oid, preservative free, adsorbed 02/07/2016 Td (adult), unspecified 02/07/2016 Tdap 02/14/2021,01/31/2021,04/16/2017 Social History Tobacco Use Types Packs/Day Years Used Date Smoking Tobacco: Never Smokeless Tobacco: Never Tobacco Cessation:Counseling Given: Not Answered Alcohol Use Standard Drinks/Week Comments Never 0 [...] Orientation Straight 04/23/2022 10 :16 AM EDT Last Filed Vital Signs Vital Sign Reading [...] Mass Index 47.06 04/16/2025 12:50 PM EDT Plan of Treatment Health Maintenance Due Date Last Done Comments Family Planning (PISQ) 1997 HPV Vaccines (1 - 3-dose series) 1997 Mammogram 2022 COVID-19 Vaccine ( season) 2025 07/24/2021, 07/24/2021, 01/18/2021, Additional history exists Influenza Vaccine (#1) 2025 03/09/2016 Cervical Cancer Screening 05/05/2025 HPV/Cotest 05/05/2025 Pap Smear 05/05/2025 05/05/2020 SDOH Screening 04/09/2026 04/09/2025 Alcohol/Substance Use Screening 04/16/2026 04/16/2025 Depression Screening 04/16/2026 04/16/2025, 04/16/20 25 Disability Screening 04/16/2026 04/16/2025 Tobacco Screening 04/16/2026 04/16/2025 Lipid Panel 04/17/2029 04/20/2025, 03/25, 03/05/2023, Additional history exists DTaP/Tdap/Td Vaccines (4 - Td or Tdap) 02/14/2031 02/14/2021, 01/31/2021, 04/16/2017, Additional history exists Zoster Vaccines (1 of 2) 2032 RSV Patients and Patients Aged 60 years or older (1 - 1-dose 75+ series) 2057 Hepatitis B Vaccines Completed 08/18/2018, 04/16/2017, 03/04/2017 HIV Screening Completed 04/17/2024 Hepatitis C Screening Completed 04/17/2024 HIB Vaccines Aged Out No longer eligi ble based on patient's age to complete this topic Hepatitis A Vaccines Aged Out No long er eligible based on patient's age to complete this topic IPV Vaccines Aged Out No longer eligi ble based on patient's age to complete this topic Meningococcal B Vaccine Aged Out No l onger eligible based on patient's age to complete this topic Meningococcal Vaccine Aged Out No yomi ada eligible based on patient's age to complete this topic Pneumococcal Vaccine: Pediatrics (0 to 5 Years) and At-Risk Patients (6 to 49) Years Aged Out No longer eligible based on patient's age to complete this topic RSV under 20 months Aged Out No longe r eligible based on patient's age to complete this topic Rotavirus Vaccines Aged Out No longer eligible based on patient's age to complete this topic Procedures Procedure Name Priority Date/Time Associated Diagnosis Comments TSH W/REFLEX TO FT4 Routine 04/20/2025 1 2:03 PM EDT Encounter for physical examination RHEUMATOID FACTOR Routine 04/20/2025 12: 03 PM EDT Chronic pain syndrome C-REACTIVE PROTEIN Routine 04/20/2025 12 :03 PM EDT Chronic pain syndrome CBC WITH AUTO DIFFERENTIAL Routine 04/20/2025 12:03 PM EDT Encounter for physical examination HEPATIC FUNCTION PANEL Routine 04/20/2025 12:03 PM EDT Encounter for physical examination LIPID PANEL, STANDARD Routine 04/20/2025 12:03 PM EDT Encounter for physical examination BASIC METABOLIC PANEL Routine 04/20/2025 12:03 PM EDT Encounter for physical examination HEPATITIS C AB W/REFL TO HCV RNA, QN, PCR Routine 04/17/2024 12:07 PM EDT Routine screening for STI (sexually transmitted infection) HIV 1/2 ANTIGEN/ANTIBODY, FOURTH GENERATION W/RFL Routine 04/17/2024 12:07 PM EDT Routine screening for STI (sexually transmitted infection) HM PAP/HPV Routine 05/05/2020 12:00 AM EST from Last 3 Months or Most Recently Relevant to Health Maintenance Results * TSH W/Reflex to FT4 (04/20/2025 12:03 PM EDT) TSH reflex Free T4 0.55 0.32 - 4.0 uIU/mL [facility] Blood Venous blood specimen / Unknown 04/20/2025 12:03 PM EDT 04/20/2025 2:09 PM EDT [facility] LAB BLOOD ORDERABLES Valentine l Result [facility] [address] [place] [phone] [phone] * (ABNORMAL) CBC auto differential (04/20/2025 12:03 PM EDT) Pathologist [facility] White Blood Count 5.0 4.8 - 10.8 X10*3/uL [facility] Red Blood Count 4.93 4.20 - 5.50 X10*6/uL [facility] Hemoglobin 12.2 12.0 - 16.0 g/dl [facility] Hematocrit 39.4 37.0 - 47.0 % [facility] Mean Corpuscular Volume 79.9(L) 80.0 - 98.0 fL [facility] Mean Corpuscular Hemoglobin 24.7(L) 27.0 - 33.0 pg [facility] Mean Corpuscular HGB Conc 31.0 31.0 - 35.0 g/dl [facility] Red Cell Distribution Width 15.0 11.0 - 16.0 % [facility] Platelet Count 211 160 - 400 X10*3/uL [facility] Mean Platelet Volume 12.7(H) 9.4 - 12.3 fL [facility] Neutrophils Percent Auto 66.3 45 - 73 % [facility] Imm Gran Pct Auto 0.2 0.0 - 0.4 % [facility] Lymphocytes Percent Auto 23.7 20 - 40 % [facility] Monocytes Percent Auto 6.6 2 - 11 % [facility] Eosinophils Percent Auto 2.4 0 - 4 % [facility] Basophils Percent Auto 0.8 0 - 2 % [facility] NRBC Pct Auto 0.0 0.0 - 0.2 /100WBC [facility] Neutrophils Absolute Auto 3.3 2.0 - 8.3 x10*3/uL [facility] Imm Gran Abs Auto 0.01 0.00 - 0.03 X10*3/uL [facility] Lymphocytes Absolute Auto 1.2 1.2 - 4.9 X10*3/uL [facility] Monocytes Absolute Auto 0.3 0.1 - 1.2 X10*3/uL [facility] Eosinophils Absolute Auto 0.1 0.0 - 0.4 X10*3/uL [facility] Basophils Absolute Auto 0.0 0.0 - 0.2 X10*3/uL [facility] NRBC Abs Auto 0.000 0.0 - 0.012 X10*3/uL [facility] Blood Venous blood specimen / Unknown 04/20/2025 12:03 PM EDT 04/20/2025 2:21 PM EDT [facility] LAB BLOOD ORDERABLES Valentine l Result Performing Organization Address City/[facility]/ZIP Co de Phone Number [facility] [address] [place] [phone] * (ABNORMAL) Rheumatoid Factor (04/20/2025 12:03 PM EDT) [facility] Rheumatoid Factor 15.8(H) <15.0 IU/mL [facility] Blood Venous blood specimen / Unknown 04/20/2025 12:03 PM EDT 04/20/2025 2:09 PM EDT [facility] LAB BLOOD ORDERABLES Valentine l Result Performing Organization Address City/[facility]/ZIP Co de Phone Number [facility] [address] [place] [phone] * (ABNORMAL) C-reactive Protein (04/20/2025 12:03 PM EDT) Pathologist [facility] C Reactive Protein 2.39(H) < or = 0.50 mg/dL [facility] Blood Venous blood specimen / Unknown 04/20/2025 12:03 PM EDT 04/20/2025 2:09 PM EDT [facility] LAB BLOOD ORDERABLES Valentine l Result Performing Organization Address [facility] Co de Phone Number [facility] [address] [place] [phone] * Hepatic Function Panel (04/20/2025 12:03 PM EDT) [facility] Bilirubin, Total 0.4 0.0 - 1.0 mg/dL [facility] Bilirubin, Direct 0.1 0.0 - 0.5 mg/dL [facility] Aspartate Amino Transferase 25 5 - 31 U/L [facility] Alanine Aminotransferase 15 0 - 31 U/L [facility] Total Protein 7.6 6.5 - 8.0 g/dL [facility] Albumin Level 4.1 3.5 - 5.0 g/dL [facility] Alkaline Phosphatase 56 39 - 117 U/L [facility] Blood Venous blood specimen / Unknown 04/20/2025 12:03 PM EDT 04/20/2025 2:09 PM EDT [facility] LAB BLOOD ORDERABLES Valentine l Result Performing Organization Address City/[facility] Co de Phone Number [facility] [address] [place] [phone] * Lipid Panel, Standard (04/20/2025 12:03 PM EDT) Pathologist [facility] Triglycerides 67 <150 mg/dL [facility] Comment:Desirable Triglyceri de: less than 150 mg/dLBorderline High Triglyceride 150-199 mg/dLHigh Triglyceride: 200-499 mg/dLVery High Triglyceride: greater than or equal to 5OO mg/dL Cholesterol 149 <200 mg/dL [facility] Comment:Desirable Cholestero l: less than 200 mg/dLBorderline High Cholesterol: 200-239 mg/dLHigh Cholesterol: greater than 239 mg/dL LDL Cholesterol Calculated 89 <100 mg/dL [facility] Comment:Desirable LDL: less than 100 mg/dLNear Optimal/Above Optimal LDL: 110- 129 mg/dLBorderline High LDL: 130-159 mg/dLHigh LDL: 160-189 mg/dLVery High LDL: greater than or equal to 190 mg/dL HDL Cholesterol 47 >40 mg/dL [facility] Comment:Desirable HDL: great er than 40 mg/dL Note: This HDL assay may give artificially low results in patients with liver disease. Blood Venous blood specimen / Unknown 04/20/2025 12:03 PM EDT 04/20/2025 2:09 PM EDT [facility] LAB BLOOD ORDERABLES Valentine l Result [facility] [address] [place] [phone] * (ABNORMAL) Basic Metabolic Panel (04/20/2025 12:03 PM EDT) Sodium 140 135 - 145 mmol/L [facility] Potassium 3.5 3.3 - 5.1 mmol/L [facility] Chloride 106 96 - 108 mmol/L [facility] Carbon Dioxide 26 22 - 29 mmol/L [facility] Anion Gap 12 12 - 20 [facility] Urea Nitrogen (BUN) 8(L) 9 - 16 mg/dL [facility] Creatinine, Serum 0.65 0.5 - 1.4 mg/dL [facility] Estimated Glomerular Filt Rate >60 [facility] Comment:Chronic Kidney Disea se: Estimated GFR < 60 mL/min/1.13u4Tudlxp Kidney Disease: Estimated GFR < 15 mL/min/1.73m2 Glucose 73 60 - 115 mg/dL [facility] Calcium 8.8 8.4 - 10.2 mg/dL [facility] Blood Venous blood specimen / Unknown 04/20/2025 12:03 PM EDT 04/20/2025 2:09 PM EDT Scarlet Clay CNP LAB BLOOD ORDERABLES Valentine l Result [facility] [address] [place] [phone] * Hepatitis C Antibody with Reflex to HCV, RNA, Quantitative, Real-Time PCR (04/17/2024 12:07 PM EDT) Hepatitis C Antibody Nonreactive Nonreactive [facility] Comment:Antibodies to HCV no t detected; does not exclude early acuteHCV infection. Blood Venous blood specimen / Unknown 04/17/2024 12:07 PM EDT 04/17/2024 12:07 PM EDT Lesly Zaman MD LAB BLOOD ORDERABLES Final Resul t Performing Organization Address City/[facility]/ZIP Co de Phone Number [facility] [address] [place] [phone] * HIV-1/2 Antigen and Antibodies, Fourth Generation, with Reflexes (04/17/2024 12:07 PM EDT) HIV AB/AG Nonreactive Nonreactive [facility] Comment:HIV-1 p24 Ag and/or HIV-1/HIV-2 Ab not detected.A test result that is nonreactive does not exclude thepossibility of exposure to or infection with HIV-1 and/orHIV-2. Nonreactive results in this assay for individualswith prior exposure to HIV-1 and/or HIV-2 may be due toantigen and antibody levels that are below the limit ofdetection of this assay.The [employer] HIV Ag/Ab Combo assay result andsupplemental assay results should be interpreted inconjunction with the patient's clinical presentation,history and other laboratory results. If the results areinconsistent with clinical evidence, additional testing issuggested to confirm the result. Blood Venous blood specimen / Unknown 04/17/2024 12:07 PM EDT 04/17/2024 12:07 PM EDT Lesly Zaman MD LAB BLOOD ORDERABLES Final Resul t [facility] [address] [place] [phone] * HM PAP/HPV (05/05/2020 12:00 AM EST) us Historical Provider HEALTH MAINTENANCE Final Result [facility] [address] [place] [address] from Last 3 Months or Most Recently Relevant to Health Maintenance Insurance MEDICARE [facility] Care Teams Risk Tech Relationship Specialty Start Date End Date Scarlet Clay CNP [address] [place] [phone] PCP - General Family Medicine 04/12/25
--- OUTSIDE RECORDS SUMMARY | 2025-04-20 15:22 | XMS_ITS | Encounter Summary ---
Author Organization [employer] Address [address] [facility] [address] [place] [address] Care Team Providers Care Auto Service Mechanic Name Role Phone Lesly Zaman MD Primary Care Provider [phone] Scarlet Clay CNP Primary Care Provider [phone] Encounter Details Date Type Department Care Team ([facility] st Contact Info) Description 11/16/2022 Telephone [facility] [address] [place], [place] [phone] Lesly Zaman MD [address] [place] [address] Social History Tobacco Use Types Packs/Day Years Used Date Smoking Tobacco: Never Assessed Depression Answer Date Recorded Patient Health Questionnaire-9 Score 2 11/16/2022 Depression Answer Date Recorded Patient Health Questionnaire-2 [...] Answer Date of Assessment Author Patient Health Questionnaire-2 Score 2 10/23 11:19 AM Chrissy Briceño [place] * If you checked off any problems on this questionnaire so far, Question Answer Date of Assessment Author How difficult have these problems made it for you to do your work, take care of things at home, or get along with other people? Not difficult at all 11/16/2022 11:19 AM EDT Pancho, Chrissy, M A * Over the past 2 weeks, how often have you been bothered by any of the following problems? Question Answer Date of Assessment Author Little interest or pleasure in doing things Several days 11/16/2022 11:19 AM Chrissy Briceño [place] Feeling down, depressed, or hopeless Several days 11/16/2022 11:19 AM Chrissy Briceño [place] Trouble falling or staying asleep, or sleeping too much Not at all 11/16/2022 11:19 AM Chrissy Briceño [place] Feeling tired or having landy le energy Not at all 11/16/2022 11:19 AM Chrissy Briceño [place] Poor appetite or overeating Not at all 11/16/2022 11 :19 AM Chrissy Briceño [place] Feeling bad about yourself - or that you are a failure or have let yourself or your family down Not at all 11/16/2022 11:19 AM Chrissy Briceño [place] Trouble concentrating on things, such as reading the newspaper or watching television Not at all 11/16/2022 11:19 AM Chrissy Briceño MA Moving or speaking so slowly that other people could have noticed? Or the opposite - being so fidgety or restless that you have been moving around a lot more than usual. Not at all 11/16/2022 11:19 AM Chrissy Briceño MA Thoughts that you would be better off or hurting yourself in some way Not at all 11/16/2022 11:19 AM Chrissy Briceño M A Patient Health Questionnaire -9 Score 2 11/16/2022 11:19 AM Chrissy Briceño MA documented as of this encounter Plan of Treatment Not on file documented as of this encounter Visit Diagnoses Not on filedocumented in this encounter Additional Health Concerns Assessment Noted Time PHQ-9 Depression Total Score: 2 11/17/19 11:19 AM EDT documented as of this encounter Care Teams Auto Service Mechanic Relationship Specialty Start Date End Date Lesly Zaman MD [address] [place] [phone] PCP - General Family Medicine 12/14/19 04/11/25 Scarlet Clay CNP [address] [place] [phone] PCP - General Family Medicine 04/12/25 documented as of this encounter
--- OUTSIDE RECORDS SUMMARY | 2025-04-20 15:22 | XMS_ITS | Encounter Summary ---
Author Organization [employer] Address [address] [facility] [address] [place] [address] Care Team Providers Care Bomb Loader Name Role Phone Scarlet Clay [employer]IB [employer] K[employer]ITTER Primary Care Provider [phone] Encounter Details Date Type Department Care Team (Latest Contact Info) Description 04/15/2025 Travel Social History Tobacco Use Types Packs/Day [...] your housing situation today? I have rosa smilye 03/31/[address] you li [...] Time PHQ-9 Depression Total Score: 6 04/09/20 2:33 PM EDT documented as of this encounter Care Teams Bomb Loader Relationship Specialty Start Date End Date Scarlet Clay CNP [address] [place] [phone] PCP - General Family Medicine 04/12/25 documented as of this encounter
--- OUTSIDE RECORDS SUMMARY | 2025-04-20 15:22 | XMS_ITS | Encounter Summary ---
Author Organization [employer] Address [address] [facility] 7t [place] [address] Care Team Providers Care Event Marketing Manager Name Role Phone Lesly Zaman MD Primary Care Provider [phone] Scarlet Clay CNP Primary Care Provider [phone] Encounter Details Date Type Department Care Team (Late st Contact Info) Description 07/30/2024 Telephone [facility] [address] [place] [address] Lesly Zaman MD [address] [place] [address] Social History Tobacco Use Types Packs/Day Years [...] encounter Miscellaneous Notes * Telephone Encounter - Stacia Phillip RN - 07/30/2024 10:54 AM EST Mother initially calling for her daughter who is a pt. At [facility]. Pt. Is requesting for herself to geta Referral done for an Initial ENT appt. That she made and has upcoming appt. But, referral generated. Advised that she will have to have a visit with PCP to get an Initial referral as PCP needs to assess and attach a DX. With referral so pt. Will need a visit. Televisit made for 07/31/24 with PCP aspt. Upset and not understanding why she needs an appt. For referral. Pt also requesting PT-1 forms to be initiated for appts to [facility] and appts to this ENT appt. Unsure who does PT-1 forms in [facility] will enquire and then send to respective team in charge. Spoke with Aishwarya and she said to send note to Rakel Gibson to reach out to pt. After 07/31/24 televisit appt. With PCP as PCP may send info to Rakel as well. documented in this encounter Plan of Treatment Not on file documented as of this encounter Visit Diagnoses Not on filedocumented in this encounter Additional Health Concerns Assessment Noted Time PHQ-9 Depression Total Score: 6 04/09/20 24 2:33 PM EDT documented as of this encounter Care Teams Event Marketing Manager Relationship Specialty Start Date End Date Austyn, Lesly, MD [address] [place] [id number] PCP - General Family Medicine 12/14/19 04/11/25 Scarlet Clay CNP [address] [place] [id number] PCP - General Family Medicine 04/12/25 documented as of this encounter
--- OUTSIDE RECORDS SUMMARY | 2025-04-20 15:22 | XMS_ITS | Clinical Summary ---
Author Organization [employer] [facility] it Address [address] [place] [address] Care Team Providers Care Automotive Buyer Name Role Phone Unavailable Primary Care Provider Unavailabl e Surgical History Surgery Date Site/Laterality Comments SECTION PROCEDURE: HISTORICAL DELIVERY OTHER SURGICAL HISTORY PROCEDURE: NE LAPS GASTRIC RESTRICTIVE PROCEDURE PLACE DEVICE OTHER SURGICAL HISTORY Bilateral PROCEDURE: NE ARTHROSCOPY ANKLE SURGICAL DEBRIDEMENT LIMITED Medical History Medical History Date Comments Carpal tunnel syndrome DX:Carpal tunnel syndrome Morbid obesity (CMS/HCC V24, CMS/HCC V28) DX:Morbid obesity (HCC) Chronic hypertension DX:Chronic hypertension Asthma DX:Asthma Anxiety and depression DX:Anxiet y and depression Other seasonal allergic rhinitis DX:Other seasonal allergic rhinitis Social History Tobacco Use Types Packs/Day Years Used Date Smoking Tobacco: Never Smokeless Tobacco: Never Alcohol Use Standard Drinks/Week Comments Never 0 (1 standard drink = 0.6 oz pur e alcohol) Comments Unknown Sex and Gender Information Value Date Recorded Sex Assigned at Not on file Legal Sex Female 11:37 PM EST Gender Identity Not on file Sexual Orientation Not on file Obstetrics History Plan of Treatment Health Maintenance Due Date Last Done Comments Breast Cancer Screening 1982 DTaP,Tdap,and Td Vaccines (1 - Tdap) 2001 Hepatitis B Vaccines (1 of 3 - 19+ 3-dose series) 2001 Cervical Cancer Screening: P ap Smear 2003 HPV Vaccines (1 - 3-dose SCD M series) 2009 Depression Screening 06/24/2024 COVID-19 Vaccine ( - 2023-2 5 season) 2025 Influenza Vaccine (#1) 2025 RSV Immunization Adult Patie nts (1 - 1-dose 75+ series) 2057 HIB Vaccines Aged Out No longer eligi ble based on patient's age to complete this topic Hepatitis A Vaccines Aged Out No long er eligible based on patient's age to complete this topic IPV Vaccines Aged Out No longer eligi ble based on patient's age to complete this topic MMR Vaccines Aged Out No longer eligi ble based on patient's age to complete this topic Meningococcal ACWY Vaccine Aged Out N o longer eligible based on patient's age to complete this topic Meningococcal B Vaccine Aged Out No l onger eligible based on patient's age to complete this topic Pneumococcal Vaccine: Pediat rics (0 to 5 Years) and At-Risk Patients (6 to 49 Years) Aged Out No longer eligible b ased on patient's age to complete this topic RSV Immunization Patients Un abigail 20 months Aged Out No longer eligible b ased on patient's age to complete this topic Varicella Vaccines Aged Out No longer eligible based on patient's age to complete this topic
--- OUTSIDE RECORDS SUMMARY | 2025-04-20 15:22 | XMS_ITS | Encounter Summary ---
Author Organization [employer] Address [address] [facility] 7t [place] [address] Care Team Providers Care Clinical Nursing Director Name Role Phone Lesly Zaman MD Primary Care Provider [phone] Scarlet Clay CNP Primary Care Provider [phone] Reason for Visit * Reason Onset Date Comments Lab Orders 03/10/2024 Medication Question 03/10/2024 Encounter Details Date Type Department Care Team ([facility] st Contact Info) Description 03/10/2024 Telephone [facility]INE [address] [place] [address] Lesly Zaman MD [address] [place] [address] Lab Orders; Medication Question Social History Tobacco Use Types Packs/Day Years [...] encounter Miscellaneous Notes * Telephone Encounter - Jayden Deleon - 03/18/2024 11:12 AM EDT Ts patient calling to request the status in regards to message below * Telephone Encounter - Chester Miramontes - 03/10/2024 11:42 AM EDT Tc from pt requesting overall blood work and B12 stated no concerns. Pt is also requesting a breastexam along with chest xray due to ongoing chest pain, she states pcp knows about chest pains and she is already seeing a water chaser. Pt would also like to discuss increasing dosage of tramadol to 75 mg does not want to go any higher. Please contact pt at [phone]. documented in this encounter Plan of Treatment Not on file documented as of this encounter Visit Diagnoses Not on filedocumented in this encounter Additional Health Concerns Assessment Noted Time PHQ-9 Depression Total Score: 2 11/17/19 23 11:19 AM EDT documented as of this encounter Care Teams Clinical Nursing Director Relationship Specialty Start Date End Date Lesly Zaman MD [address] [place] [address] PCP - General Family Medicine 12/14/19 04/11/25 Scarlet Clay CNP [address] [place] [id number] PCP - General Family Medicine 04/12/25 documented as of this encounter
--- OUTSIDE RECORDS SUMMARY | 2025-04-20 15:22 | XMS_ITS | Encounter Summary ---
Author Organization [employer] Address [address] [place] [address] 7t [place] [address] Care Team Providers Care Abrasive Mixer Name Role Phone Lesly Zaman MD Primary Care Provider [phone] Scarlet Clay CNP Primary Care Provider [phone] Encounter Details Date Type Department Care Team (Late st Contact Info) Description 08/27/2022 Orders Only [facility] MED [facility] PEDS [address] [place], [place] [phone] Lesly Zaman MD [address] [place] [address] Class 3 severe obesity due to excess calories with serious comorbidity in adult, unspecified BMI (CMS/HCC) (Primary Dx) Social History Tobacco Use Types Packs/Day Years Used Date Smoking Tobacco: Never Assessed Comments Unknown Sex and Gender Information Value Date Recorded Sex Assigned at Female 04/23/2022 10:16 AM EDT Legal Sex Female 10:16 AM EDT Gender Identity Female 04/23/2022 10:16 AM EDT Sexual Orientation Straight 04/23/2022 10 :16 AM EDT documented as of this encounter Plan of Treatment Not on file documented as of this encounter Visit Diagnoses Diagnosis Class 3 severe obesity due to excess calories with serious comorbidity in adult, unspecified BMI (HCC)- Primary documented in this encounter Care Teams Abrasive Mixer Relationship Specialty Start Date End Date Lesly Zaman MD [address] [place] [phone] PCP - General Family Medicine 12/14/19 04/11/25 Scarlet Clay CNP [address] [place] [id number] PCP - General Family Medicine 04/12/25 documented as of this encounter
--- OUTSIDE RECORDS SUMMARY | 2025-04-20 15:22 | XMS_ITS | Encounter Summary ---
Author Organization [employer] Address [address] [facility] [address] [place] [address] Care Team Providers Care Shotblast Equipment Operator Name Role Phone Scarlet Clay ERMIAS Primary Care Provider [phone] Encounter Details Date Type Department Care Team ([facility] st Contact Info) Description 04/20/2025 Telephone [facility] [address] [place] [address] Erika La, RN Social History Tobacco Use Types Packs/Day Years [...] encounter Miscellaneous Notes * Telephone Encounter - Scarlet Clay CNP - 04/20/2025 1:04 PM EDT Hi no she can just formally discontinue, we were trialing this for chronic pain, she mentioned thatshe rather not take too many meds at once anyway. Thank you! * Telephone Encounter - Erika La RN - 04/20/2025 12:30 PM EDT Pt walk-in. Stated she doesn't like with way the DULoxetine (Cymbalta) [address] capsule made her feel (wouldn't give specifics), so she is not taking it anymore. Will route to provider to see if provider would like to order an alternative. documented in this encounter Plan of Treatment Not on file documented as of this encounter Visit Diagnoses Not on filedocumented in this encounter Additional Health Concerns Assessment Noted Time PHQ-9 Depression Total Score: 7 04/16/20 25 12:54 PM EDT documented as of this encounter Care Teams Shotblast Equipment Operator Relationship Specialty Start Date End Date Scarlet Clay CNP [address] [place] [address] PCP - General Family Medicine 04/12/25 documented as of this encounter
--- OUTSIDE RECORDS SUMMARY | 2025-04-20 15:22 | XMS_ITS | Encounter Summary ---
Author Organization [employer] Address [address] [facility] 7t [place] [address] Care Team Providers Care Film Mounter Name Role Phone Lesly Zaman MD Primary Care Provider [phone] Scarlet Clay CNP Primary Care Provider [phone] Reason for Visit * Reason Onset Date Comments Medication Question 03/22/2025 Encounter Details Date Type Department Care Team ([facility] Contact Info) Description 03/22/2025 Telephone [facility] MED & PEDS [address] [place], [place] [phone] Lesly Zaman MD [address] [place] [address] Medication Question Social History Tobacco Use Types [...] encounter Miscellaneous Notes * Telephone Encounter - Lesly Zaman MD - 03/22/2025 6:08 PM EDT Needs appointment before starting new meds * Telephone Encounter - Rakel Gibson - 03/22/2025 5:16 PM EDT PT-1 submitted for patient. They will receive a letter of approval or denial in the mail. * Telephone Encounter - Erika La RN - 03/22/2025 12:03 PM EDT TC to patient. She is stating that when she last saw Dr. Zaman, she had changed her pain medication from Tramadol 50 mg to Celebrex 100 mg. Patient has since stopped taking Celebrex d/t no like how theside effects were making her fell funny . She would like Dr. Zaman to restart her on Tramadol at a higher dose. Patient also stated that her PT1 form has not been updated as requested. Patient also requesting a GI referral for [facility] for her daughter. Routing to provider and referral. * Telephone Encounter - Grzegorz Moreno - 03/22/2025 9:23 AM EDT Tc from pt requesting to go back on Tramadol but with the dosage boosted. Any questions contact pt at [phone] documented in this encounter Plan of Treatment Not on file documented as of this encounter Visit Diagnoses Not on filedocumented in this encounter Additional Health Concerns Assessment Noted Time PHQ-9 Depression Total Score: 6 04/09/20 24 2:33 PM EDT documented as of this encounter Care Teams Film Mounter Relationship Specialty Start Date End Date Lesly Zaman MD [address] [place] [phone] PCP - General Family Medicine 12/14/19 04/11/25 Scarlet Clay CNP [address] [place] [id number] PCP - General Family Medicine 04/12/25 documented as of this encounter
[2025-04-28 12:18] LABS: Anti Nuclear Antibody Pattern Nuclear, Speckled; Anti Nuclear Antibody Screen POSITIVE (NEGATIVE); Anti Nuclear Antibody Titer 1:40 titer
== END 2025-04-20 12:02 | disposition home or self-care (01) ==
LOC: HO.CHCLDS 12:01
DX: Z00.00 Encounter for general adult medical examination without abnormal findings (principal); Z01.84 Encounter for antibody response examination; G89.4 Chronic pain syndrome; Z13.29 Encounter for screening for other suspected endocrine disorder; Z13.6 Encounter for screening for cardiovascular disorders
CPT/HCPCS: 36415; 80048; 80061; 80076; 84443; 85025; 85652; 86038; 86039; 86140; 86431